=== PATIENT | female | born 2000 | race Caucasian/White ===

== ENCOUNTER 2021-05-02 18:29 | Emergency (ER) | payer OTHER ==
[~2021-05-02] VITALS: Ht 165.1 cm; Wt 75.0 kg
[2021-05-02 19:13] LABS: HEMATOCRIT 45.8 % (37.0-47.0); HEMOGLOBIN 15.8 g/dl (12.5-16.0); MEAN CELL VOLUME 86 fl (80.0-100.0); MEAN CORPUSCULAR HEMOGLOBIN 30 pg (27.0-31.0); MEAN CORPUSCULAR HGB CONC 35 g/dl (33.0-37.0); MEAN PLATELET VOLUME 9.7 fl (7.4-10.4); PLATELET COUNT 426 K/mm3 (130-400); RED BLOOD COUNT 5.35 M/mm3 (4.10-5.30); REDCELL DISTRIBUTION WIDTH-CV 12.9 % (11.5-14.5)
[2021-05-02 19:21] LABS: ALANINE AMINOTRANSFERASE 21 U/L (4-34); ALKALINE PHOSPHATASE 153 U/L (50-136); ANION GAP 13 mmol/L (7-16); AST,SGOT 29 U/L (15-37); BILIRUBIN,TOTAL 2.4 mg/dL (0.0-1.0); BLOOD UREA NITROGEN 18 mg/dL (7-17); CALCIUM 9.7 mg/dL (8.4-10.2); CARBON DIOXIDE 22 mmol/L (22-30); CHLORIDE 103 mmol/L (98-107); CREATININE, serum 0.75 (0.52-1.25); GLUCOSE 147 mg/dL (74-106); LIPASE 25 U/L (23-300); POTASSIUM 3.8 mmol/L (3.4-5.0); SODIUM 138 mmol/L (137-145); TOTAL PROTEIN 7.9 gm/dL (6.4-8.2)
[2021-05-02 19:24] LABS: ACETONE,SERUM NEGATIVE
[2021-05-02 19:37] LABS: LYMPHOCYTE 8 % (20.0-51.0); NEUTROPHILS 90 % (42.0-75.2); PLATELET ESTIMATE NORMAL (NORMAL)
[2021-05-02 19:57] LABS: COLLECTION METHOD CLEAN CATCH
[2021-05-02 20:02] LABS: MUCOUS Present /lpf; PH 5 (5-8); SQUAMOUS EPITHELIAL 0-2 /hpf; URINE APPEARANCE Clear; URINE BACTERIA Rare /hpf; URINE BILIRUBIN Negative (NEGATIVE); URINE BLOOD 1+ (NEGATIVE); URINE COLOR Yellow; URINE GLUCOSE 3+ (NEGATIVE); URINE KETONE 2+ (NEGATIVE); URINE LEUKOCYTE ESTERASE Negative (NEGATIVE); URINE NITRATE Negative (NEGATIVE); URINE PROTEIN(semi-quant) 1+ (NEGATIVE); URINE RBC None Seen /hpf; URINE UROBILINOGEN Negative (NEGATIVE)
[2021-05-02 20:50] VITALS: BP 104/54; PULSE 99; TEMP 97.9
== END 2021-05-02 20:55 | disposition home or self-care (01) ==
LOC: COL.ER 18:29
PROVIDERS: Physician Assistant
DX: D72.829 Elevated white blood cell count, unspecified (principal); E10.9 Type 1 diabetes mellitus without complications; Z96.41 Presence of insulin pump (external) (internal)
CPT/HCPCS: J2405; J7030

== ENCOUNTER 2021-05-21 12:49 | Emergency (ER) | payer OTHER ==
[~2021-05-21] VITALS: Ht 165.1 cm; Wt 72.7 kg
[2021-05-21 13:57] VITALS: TEMP 98.5
[2021-05-21] MEDS ORDERED: WELLBUTRIN XL300 M1 PO (15:05)
[2021-05-21] MEDS ORDERED: PROZAC60 MG (15:05)
[2021-05-21] MEDS ORDERED: HUMALOGKP50/50 SQ (15:05)
[2021-05-21] MEDS ORDERED: ADDERALL20 MG PO (15:06)
[2021-05-21 15:42] VITALS: BP 107/57; PULSE 95
== END 2021-05-21 15:44 | disposition home or self-care (01) ==
LOC: COL.ER 12:49
DX: S40.012A Contusion of left shoulder, initial encounter (principal); E10.9 Type 1 diabetes mellitus without complications; F32.9 Major depressive disorder, single episode, unspecified; F41.9 Anxiety disorder, unspecified; F90.9 Attention-deficit hyperactivity disorder, unspecified type; Z29.14 Encounter for prophylactic rabies immune globulin; Z96.41 Presence of insulin pump (external) (internal); Z79.899 Other long term (current) drug therapy; W55.81XA Bitten by other mammals, initial encounter

== ENCOUNTER 2021-05-27 15:22 | Outpatient (RCR) | payer OTHER ==
[~2021-05-27 15:22] MED LIST: ADDERALL20 MG PO; HUMALOGKP50/50 SQ; PROZAC60 MG; WELLBUTRIN XL300 M1 PO
== END 2021-08-25 ==
LOC: COL.ER
DX: R69 Illness, unspecified (principal)